=== PATIENT | female | born 1985 | race Two or more races ===

== ENCOUNTER 2018-12-19 16:28 | Emergency (ER) | payer OTHER ==
--- NOTE | 2018-12-19 17:38 | ER Document Report ---
ED Medical Screen (RME) - General Chief Complaint: Vaginal Bleeding Stated Complaint: VAGINAL BLEEDING WITH Time Seen by Provider: 12/19/18 17:36 Primary Care Provider: DON PETERSON MD [Primary Care Provider] - Follow up as needed Mode of Arrival: Ambulatory Information source: Patient Notes: 33-year-old female presented to ED for complaint of severe pelvic pain since this morning. She states she thinks she is having a miscarriage. She states her pain is a 5 out of 5 sharp cramping. She is 11 weeks . She states her last menstrual period was 10/01/2018. She went to the bathroom to urinate. She states while she was in the bathroom she passed the fetus and wrapped it up in toilet paper in a paper towel. She states she passed the fetus into her sanitary pad. She states the pain is much better now. She is not sure of her blood type. She thinks it is O+ but she is not sure. I have greeted and performed a rapid initial assessment of this patient. A comprehensive ED assessment and evaluation of the patient, analysis of test results and completion of medical decision making process will be conducted by an additional ED providers. - Related Data Allergies/Adverse Reactions: NSAIDS (Non-Steroidal Anti-Inflamma Allergy (Verified 12/19/18 16:36) Physical Exam - Vital signs Vitals: Temp Pulse Resp BP Pulse Ox 97.9 F 55 L 14 128/79 H 99 12/19/18 16:46 12/19/18 16:46 12/19/18 16:46 12/19/18 16:46 12/19/18 16:46 Course - Vital Signs Vital signs: Temp Pulse Resp BP Pulse Ox 97.9 F 55 L 14 128/79 H 99 12/19/18 16:46 12/19/18 16:46 12/19/18 16:46 12/19/18 16:46 12/19/18 16:46 Doctor's Discharge - Discharge Referrals: DON PETERSON MD [Primary Care Provider] - Follow up as needed
[2018-12-19 19:49] LABS: ABSOLUTE LYMPHOCYTES (AUTO) 0.7 10^3/uL (0.5-4.7); ABSOLUTE MONOCYTES (AUTO) 0.2 10^3/uL (0.1-1.4); ABSOLUTE NEUT (AUTO) 4.3 10^3/uL (1.7-8.2); BASOPHILS % (AUTO) 0.2 % (0-2); EOSINOPHILS % (AUTO) 0.1 % (0-6); HEMATOCRIT 32.1 % (36.0-47.0); HEMOGLOBIN 10.5 g/dL (12.0-15.5); LYMPHOCYTES % (AUTO) 13.8 % (13-45); MEAN CORPUSCULAR HEMOGLOBIN 25.8 pg (27.0-33.4); MEAN CORPUSCULAR HGB CONC 32.8 g/dL (32.0-36.0); MEAN CORPUSCULAR VOLUME 79 fl (80-97); MONOCYTES % (AUTO) 4.7 % (3-13); PLATELET COUNT 336 10^3/uL (150-450); RED BLOOD COUNT 4.08 10^6/uL (3.72-5.28); RED CELL DISTRIBUTION WIDTH 14.8 % (11.5-14.0); SEGMENTED NEUTROPHILS % (AUTO) 81.2 % (42-78); TOTAL CELLS COUNTED % (AUTO) 100 %; WHITE BLOOD COUNT 5.3 10^3/uL (4.0-10.5)
--- NOTE | 2018-12-19 20:01 | ER Document Report ---
ED General - General Chief Complaint: Vaginal Bleeding Stated Complaint: VAGINAL BLEEDING WITH Time Seen by Provider: 12/19/18 17:36 Primary Care Provider: NOLVIA RIVAS MD [ACTIVE STAFF] - Follow up as needed Mode of Arrival: Ambulatory Information source: Patient Notes: Patient is a 33-year-old female who presents to the emergency department with chief complaint of low abdominal cramping and vaginal bleeding. Patient reports that she is approximately 11 weeks . She is a . She states that she began having low abdominal cramping earlier today followed by bright red vaginal bleeding. She reports she is going through 1 pad every 2 hours. Will the patient was in the lobby patient reports that she passed what looked like a fetus. She states that the front nursing staff sent this down to the lab. Patient reports continued low abdominal cramping and vaginal bleeding. She has not not sure what her blood type is. - Related Data Allergies/Adverse Reactions: NSAIDS (Non-Steroidal Anti-Inflamma Allergy (Verified 12/19/18 16:36) Past Medical History - General Information source: Patient - Social History Smoking Status: Never Smoker Frequency of alcohol use: None Drug Abuse: None Family History: Reviewed & Not Pertinent - Medical History Medical History: Negative Surgical Hx: Negative - Immunizations Immunizations up to date: Yes Review of Systems - Review of Systems Constitutional: No symptoms reported EENT: No symptoms reported Cardiovascular: No symptoms reported Respiratory: No symptoms reported Gastrointestinal: Abdominal pain - low abd cramping Genitourinary: No symptoms reported Female Genitourinary: Vaginal bleeding Musculoskeletal: No symptoms reported Skin: No symptoms reported Hematologic/Lymphatic: No symptoms reported Neurological/Psychological: No symptoms reported Physical Exam - Vital signs Vitals: Temp Pulse Resp BP Pulse Ox 97.9 F 55 L 14 128/79 H 99 12/19/18 16:46 12/19/18 16:46 12/19/18 16:46 12/19/18 16:46 12/19/18 16:46 - Notes Notes: PHYSICAL EXAMINATION: GENERAL: Well-appearing, well-nourished and in no acute distress. HEAD: Atraumatic, normocephalic. EYES: Pupils equal round and reactive to light, extraocular movements intact, conjunctiva are normal. ENT: Nares patent, oropharynx clear without exudates. Moist mucous membranes. NECK: Normal range of motion, supple without lymphadenopathy LUNGS: Breath sounds clear to auscultation bilaterally and equal. No wheezes rales or rhonchi. HEART: Regular rate and rhythm without murmurs ABDOMEN: Soft, nontender, nondistended abdomen. No guarding, no rebound. No masses appreciated. Female : Small amounts of bright red blood noted in the vaginal vault. No active hemorrhage noted Musculoskeletal: Normal range of motion, no pitting or edema. No cyanosis. NEUROLOGICAL: Cranial nerves grossly intact. Normal speech, normal gait. Normal sensory, motor exams PSYCH: Tearful. SKIN: Warm, Dry, normal turgor, no rashes or lesions noted. Course - Re-evaluation Re-evalutation: Well appearing 33-year-old female presenting with probable miscarriage. Patient reports passing what looked like a small fetus while in the lobby. Patient reports this is her first . She states she was approximately 11 weeks. Her CBC is unremarkable with a hemoglobin of 10.5. HCG quantitative is 140,330. Patient reports she is changing her pad about once every 3 hours. I did visualize her bleeding and it appears to be mild at this time. She reports low abdominal cramping that is intermittent. Patient was sent for a transvaginal ultrasound which did not reveal a intrauterine nor did it show any retained products of conception. Most likely this is a completed a bortion. Patient was given a dose of ibuprofen here in the emergency department for her cramping and she reports significant relief. She will be instructed to take ibuprofen at home. Strict ED return precautions were discussed to include development of fever, worsening abdominal pain or bleeding through more than 1 pad per hour for 4 hours consecutively. Patient already has an appointment sche duled with her [facility] provider for Saturday. I encourage patient to keep this appointment to have them recheck her. - Vital Signs Vital signs: Temp Pulse Resp BP Pulse Ox 98.1 F 80 16 118/66 100 12/19/18 23:15 12/19/18 23:15 12/19/18 23:15 12/19/18 23:15 12/19/18 23:15 - Laboratory Result Diagrams: 12/19/18 19:26 Laboratory results interpreted by me: 12/19/18 12/19/18 19:26 19:26 Hgb 10.5 L Hct 32.1 L MCV 79 L MCH 25.8 L RDW 14.8 H Seg Neutrophils % 81.2 H Beta HCG, Quant 971824.00 H Discharge - Discharge Clinical Impression: Vaginal bleeding affecting early Condition: Stable Disposition: HOME, SELF-CARE Additional Instructions: Miscarriage You have had a miscarriage (medically called a "spontaneous "). The miscarriage occurred because the fetus did not develop normally. There is nothing you did to cause it, and nothing you could have done to prevent it. About one in four ends in miscarriage. You should rest in bed for two or three days. As there is some risk of infection of the uterus, you should not have intercourse for one week (or until okayed by your physician). You might not have a period for six to eight weeks. You should not become again for at least three months -- the uterus requires time to get back to normal. Call the doctor or return for re-examination if there is heavy or persiste nt vaginal bleeding, fever, foul discharge, continued cramping pains, or abdominal pain. Please take ibuprofen 600 mg every 6 hours for cramping and pain. Use the pain medication we sent to home with for severe pain only. Please return to the emergency department if you experience heavy vaginal bleeding and are saturating through 1 pad per hour for greater than 3 hours. Please follow-up with [facility], call them Saturday to schedule an appointment. Referrals: NOLVIA RIVAS MD [ACTIVE STAFF] - Follow up as needed
[2018-12-19] MEDS ORDERED: IBUPROFEN 600 MG TABLET PO ONE (20:05)
--- NOTE | 2018-12-19 22:32 | RADIOLOGY REPORT (SQ) ---
US PELVIS HISTORY: Vaginal bleeding. COMPARISON: None. TECHNIQUE: Grayscale, color Doppler, and spectral Doppler ultrasound images of the pelvis were obtained. FINDINGS: Uterus is anteverted and measures 10.5 x 5.7 x 6.2 cm. No intrauterine gestational sac, yolk sac, or pole is visualized. The endometrium is thickened and heterogeneous, measuring 3 cm. The cervix measures 2.2 cm in length. There are 2 left-sided posterior uterine fibroids measuring 2.4 x 1.7 x 2.2 cm and 2.3 x 1.3 x 2.1 cm. Both ovaries are normal, with the right measuring 3.1 x 2.5 x 2.2 cm and the left measuring 3.5 x 1.9 x 2.9 cm. Small anechoic cysts are present in both ovaries, measuring 1.1 cm on the right and 1.4 cm on the left. No pelvic free fluid is identified. IMPRESSION: 1. No intrauterine is identified. 2. Thickened heterogeneous endometrium but without evidence of retained products of conception. 3. Uterine fibroids. 4. Normal ovaries.
[2018-12-19] MEDS ORDERED: HYDROCODONE/ACETAMINOPHEN 5-325 MG (6 TAB/ER DISP) PO PRN (22:55)
[2018-12-19] MEDS ORDERED: ONDANSETRON ODT 4 MG TAB (6 TAB/ER DISP) PO PRN (22:55)
[2018-12-19 23:26] VITALS: BP 118/66
== END 2018-12-19 23:32 | disposition home or self-care (01) ==
LOC: ER 16:28
DX: O46.91 Antepartum hemorrhage, unspecified, first trimester (principal); Z3A.11 11 weeks gestation of pregnancy
CPT/HCPCS: 36415; 76817; 84702; 85025; 86900; 86901; 88300; 88305; 99284

== ENCOUNTER 2020-01-03 19:47 | Emergency (ER) | payer OTHER ==
--- NOTE | 2020-01-03 20:20 | ER Document Report ---
ED Medical Screen (RME) - General Chief Complaint: Chest Pain Stated Complaint: CHEST PAIN Time Seen by Provider: 01/03/20 20:13 Mode of Arrival: Ambulatory Information source: Patient Notes: 34-year-old female presented to ED for complaint of chest pain to the center of her chest that goes through to the back. She states this started during the night last night. She states it has come and gone during the day. It is worse when she gets up the breeze coughs or moves around. She states the pain at this moment is a 2/5 and the worst is been was a 5/5. She states the tightness is there all the time but she cannot describe the pain that is really bad that comes and goes when she breathes or coughs. States she last menstrual cycle was some spotting at the end of November. She states she was due to have her next Depo-Provera at end of November but is not taking it because she wanted to get . Last Depo- Provera was the end of August beginning of September. Lungs are clear to auscultation. I have greeted and performed a rapid initial assessment of this patient. A comprehensive ED assessment and evaluation of the patient, analysis of test results and completion of medical decision making process will be conducted by an additional ED providers. - Related Data Allergies/Adverse Reactions: NSAIDS (Non-Steroidal Anti-Inflamma Allergy (Verified 12/19/18 16:36) Past Medical History Renal/ Medical History: Denies: Hx Peritoneal Dialysis - Immunizations Immunizations up to date: Yes Physical Exam - Vital signs Vitals: Temp Pulse Resp BP Pulse Ox 99.1 F 112 H 16 124/85 100 01/03/20 20:10 01/03/20 20:10 01/03/20 20:10 01/03/20 20:10 01/03/20 20:10 Course - Vital Signs Vital signs: Temp Pulse Resp BP Pulse Ox 99.1 F 112 H 16 124/85 100 01/03/20 20:10 01/03/20 20:10 01/03/20 20:10 01/03/20 20:10 01/03/20 20:10
[2020-01-03 20:51] LABS: ABSOLUTE LYMPHOCYTES (AUTO) 0.4 10^3/uL (0.5-4.7); ABSOLUTE MONOCYTES (AUTO) 0.4 10^3/uL (0.1-1.4); ABSOLUTE NEUT (AUTO) 2.4 10^3/uL (1.7-8.2); BASOPHILS % (AUTO) 0.5 % (0-2); EOSINOPHILS % (AUTO) 0.1 % (0-6); HEMATOCRIT 35.7 % (36.0-47.0); HEMOGLOBIN 11.9 g/dL (12.0-15.5); LYMPHOCYTES % (AUTO) 13.4 % (13-45); MEAN CORPUSCULAR HEMOGLOBIN 30.4 pg (27.0-33.4); MEAN CORPUSCULAR HGB CONC 33.4 g/dL (32.0-36.0); MEAN CORPUSCULAR VOLUME 91 fl (80-97); MONOCYTES % (AUTO) 11.3 % (3-13); PLATELET COUNT 266 10^3/uL (150-450); RED BLOOD COUNT 3.92 10^6/uL (3.72-5.28); RED CELL DISTRIBUTION WIDTH 14.1 % (11.5-14.0); SEGMENTED NEUTROPHILS % (AUTO) 74.7 % (42-78); TOTAL CELLS COUNTED % (AUTO) 100 %; WHITE BLOOD COUNT 3.2 10^3/uL (4.0-10.5)
[2020-01-03 21:01] LABS: APPEARANCE,URINE SLIGHTLY-CLOUDY; BILIRUBIN,URINE NEGATIVE (NEGATIVE); COLOR,URINE YELLOW; GLUCOSE, URINE NEGATIVE (NEGATIVE); KETONES,URINE NEGATIVE (NEGATIVE); PROTEIN,URINE NEGATIVE (NEGATIVE); URINE SPECIFIC GRAVITY 1.014
--- NOTE | 2020-01-03 21:04 | RADIOLOGY REPORT (SQ) ---
EXAM DESCRIPTION: XR CHEST 2 VIEWS COMPLETED DATE/TME: 01/03/2020 20:21 CLINICAL HISTORY: 34 years, Female, Chest pain COMPARISON: None. NUMBER OF VIEWS: Two TECHNIQUE: Frontal and lateral radiographs were acquired LIMITATIONS: None. FINDINGS: Cardiac and mediastinal contours are normal in appearance. Lungs are clear. No pleural effusion or pneumothorax. IMPRESSION: No acute disease. copyright 2010 [employer]- All Rights Reserved
[2020-01-03 21:06] LABS: ALBUMIN 4.4 g/dL (3.5-5.0); ALKALINE PHOSPHATASE 99 U/L (38-126); ANION GAP 7 (5-19); ASPARTATE AMINO TRANSFERASE 89 U/L (14-36); BILIRUBIN,TOTAL 0.8 mg/dL (0.2-1.3); BLOOD UREA NITROGEN 9 mg/dL (7-20); CALCIUM 9.2 mg/dL (8.4-10.2); CARBON DIOXIDE 27 mmol/L (22-30); CHLORIDE 102 mmol/L (98-107); GLUCOSE 88 mg/dL (75-110); POTASSIUM 4.5 mmol/L (3.6-5.0); TOTAL PROTEIN 8.1 g/dL (6.3-8.2)
--- NOTE | 2020-01-03 21:15 | EKG REPORT ---
SEVERITY:- OTHERWISE NORMAL ECG - SINUS TACHYCARDIA : Confirmed by: Velasquez Cordova MD 03-Jan-2020 21:14:34
--- NOTE | 2020-01-03 21:44 | ER Document Report ---
Entered by DONTAE DUNCAN SCRIBE 01/03/202055 Acting as scribe for:MAGGIE CAMPBELL IV, MD ED General - General Chief Complaint: Chest Pain Stated Complaint: CHEST PAIN Time Seen by Provider: 01/03/20 20:13 Primary Care Provider: LORI MENDENHALL MD [Primary Care Provider] - 01/06/20 Mode of Arrival: Ambulatory Information source: Patient Notes: This 34 year old female patient with no significant past medical history present to the ED today with complaints of sternal chest pain with radiation to her back that began last night. Patient states that the pain comes and goes during the day and is worse with deep breaths, ambulation, and coughing. Patient notes that she was sent here from urgent care today for further evaluation. Patient also reports subjective fevers and a productive cough, stating that everyone in the house has been sick for the past couple of weeks. Patient states that she has been taking OTC medications and Theraflu for her symptoms without relief. Patient notes that she has a follow up appointment with her PCP scheduled for 01/06/2020. Patient states that she cannot take NSAIDS due to her gastric bypass surgery. Patient denies history of asthma, hypertension, or diabetes. - Related Data Allergies/Adverse Reactions: NSAIDS (Non-Steroidal Anti-Inflamma Allergy (Verified 12/19/18 16:36) Past Medical History - General Information source: Patient - Social History Smoking Status: Never Smoker Cigarette use (# per day): No Chew tobacco use (# tins/day): No Smoking Education Provided: No Frequency of alcohol use: None Drug Abuse: None Occupation: elevator constructor hydraulic Family History: Reviewed & Not Pertinent Patient has suicidal ideation: No Patient has homicidal ideation: No - Immunizations Immunizations up to date: Yes Review of Systems - Review of Systems Constitutional: See HPI, Fever EENT: No symptoms reported Cardiovascular: See HPI, Chest pain Respiratory: See HPI, Cough, Sputum Gastrointestinal: No symptoms reported Genitourinary: No symptoms reported Female Genitourinary: No symptoms reported Musculoskeletal: No symptoms reported Skin: No symptoms reported Hematologic/Lymphatic: No symptoms reported Neurological/Psychological: No symptoms reported -: Yes All other systems reviewed and negative Physical Exam - Vital signs Vitals: Temp Pulse Resp BP Pulse Ox 99.1 F 112 H 16 124/85 100 01/03/20 20:10 01/03/20 20:10 01/03/20 20:10 01/03/20 20:10 01/03/20 20:10 Interpretation: Tachycardic - General General appearance: Alert - HEENT Head: Normocephalic, Atraumatic Eyes: Normal Pupils: PERRL - Respiratory Respiratory status: No respiratory distress Chest status: Nontender Breath sounds: Normal Chest palpation: Normal - Cardiovascular Rhythm: Tachycardia Heart sounds: Normal auscultation Murmur: No Friction rub: No Gallop: None auscultated - Abdominal Inspection: Normal Distension: No distension Bowel sounds: Normal Tenderness: Nontender Organomegaly: No organomegaly - Back Back: Normal, Nontender - Extremities General upper extremity: Normal inspection General lower extremity: Normal inspection - Neurological Neuro grossly intact: Yes - Psychological Associated symptoms: Normal affect, Normal mood - Skin Skin Temperature: Warm Skin Moisture: Dry Skin Color: Normal Course - Vital Signs Vital signs: Temp Pulse Resp BP Pulse Ox 99.7 F 104 H 16 149/95 H 100 01/03/20 21:46 01/03/20 21:46 01/03/20 21:46 01/03/20 21:46 01/03/20 21:46 - Laboratory Result Diagrams: 01/03/20 20:30 01/03/20 20:30 Laboratory results interpreted by me: 01/03/20 01/03/20 01/03/20 20:30 20:30 20:30 WBC 3.2 L Hgb 11.9 L Hct 35.7 L RDW 14.1 H Absolute Lymphs (auto) 0.4 L Sodium 136.4 L AST 89 H ALT 49 H Urine Urobilinogen 4.0 H - EKG Interpretation by Me Additional EKG results interpreted by me: 01/03/20 21:28 EKG obtained on 01/03/2020 at 1953 hrs. was interpreted by this MD. Findings: Sinus tachycardia, rate 111, P waves preceding QRS complexes, normal axis QRS complexes appear narrow, there are no obvious patterns of ST segment elevation or depression to suggest acute myocardial ischemia or infarction. Impression sinus tachycardia with nonspecific ST segments. Discharge - Discharge Clinical Impression: Viral respiratory illness Condition: Good Disposition: HOME, SELF-CARE Instructions: Acetaminophen, Viral Syndrome ([facility]) Additional Instructions: Return to the Emergency Department without delay if any worse. HOME CARE INSTRUCTIONS & INFORMATION: Thank you for choosing us for your medi nelly needs. We hope you're satisfied with the care you received. After you leave, you must properly care for your problem and, at the same time, observe its progress. Any condition can change. Some illnesses can change rapidly over hours or days. If your condition worsens, return to the Emergency Department or see your physician promptly. ABOUT YOUR X-RAYS AND EKG'S: If you had an EKG or X-rays taken, they have been read by the Emergency Physician. The X-rays and EKG's will also be read by a Radiologist or Grape Grower within 24 hours. If discrepancies are noted, you will be notified by telephone. Please be certain the ED has a correct telephone number & address where you can be reached. Also, realize that some fractures or abnormalities do not show up on initial X-rays. If your symptoms continue, see your physician. ABOUT YOUR LABORATORY TEST: If you had laboratory tests, the results have been reviewed by the Emergency Physician. Some test results (for example cultures) may not be available for several days. You will be contacted if any test result shows you need additional treatment. Please be certain the ED has a correct telephone number and address where you can be reached. ABOUT YOUR MEDICATIONS: You will receive instructions on how to take your medicine on the prescription label you receive. Additional information may be provided by the Pharmacy. If you have questions afterwards, call the ED for clarification or further instructions. Some prescribed medications may cause drowsiness. Do not perform tasks such as driving a car or operating machinery without consulting your Pharmacist. If you feel you need a refill of pain medication, your condition will need re-evaluation. Please do not call for a refill of any medication. ABOUT YOUR SIGNATURE: Signature of this document acknowledges to followin. Understanding that you received emergency treatment and that you may be released before al medical problems are known or treated. Please be certain the ED has a correct phone number & address where you can be reached. 2. Acknowledgement that you will arrange for follow-up care as recommended. 3. Authorization for the Emergency Physician to provide information to your follow-up Physician in order to maximize your care. AT ANY TIME, IF YOUR SYMPTOMS CHANGE SIGNIFICANTLY OR WORSEN OR YOU DEVELOP NEW SYMPTOMS, RETURN TO THE EMERGENCY DEPARTMENT IMMEDIATELY FOR RE-EVALUATION. OUR GOAL IS TO PROVIDE EXCELLENT MEDICAL CARE! WE HOPE THAT WE HAVE MET YOUR EXPECTATIONS DURING YOUR EMERGENCY DEPARTMENT VISIT AND THAT YOU FEEL YOU HAVE RECEIVED EXCELLENT CARE! Forms: Return to Work Referrals: LORI MENDENHALL MD [Primary Care Provider] - 01/06/20 I personally performed the services described in the documentation, reviewed and edited the documentation which was dictated to the scribe in my presence, and it accurately records my words and actions.
[2020-01-03 21:46] VITALS: BP 149/95
== END 2020-01-03 21:46 | disposition home or self-care (01) ==
LOC: ER 19:47
DX: J06.9 Acute upper respiratory infection, unspecified (principal); R07.9 Chest pain, unspecified; M54.9 Dorsalgia, unspecified; R50.9 Fever, unspecified; R05 Cough; Z98.84 Bariatric surgery status; Z88.8 Allergy status to other drugs, medicaments and biological substances
CPT/HCPCS: 36415; 71046; 80053; 81001; 84702; 85025; 85379; 93005; 93010; 99285

== ENCOUNTER 2020-01-26 13:14 | Emergency (ER) | payer OTHER ==
--- NOTE | 2020-01-26 14:24 | ER Document Report ---
ED Medical Screen (RME) - General Chief Complaint: Flank Pain Stated Complaint: FLANK PAIN Time Seen by Provider: 01/26/20 14:20 Primary Care Provider: LORI MENDENHALL MD [Primary Care Provider] - Follow up as needed Mode of Arrival: Ambulatory Information source: Patient Notes: 34-year-old female presented to ED for complaint of left flank pain. She states the pain started on the seventh. It goes to the flank around to the front sometimes mostly to the lower back. She states before on the first she started her period before her cycle she had frequency with urination hot and cold chills states the only thing she is having now is the pain. 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 She states she does not smoke or use any drugs but she does drink on the weekends. She is alert oriented respirations regular and unlabored speaking in full sentences. She states she has no urinary symptoms at this time. I have greeted and performed a rapid initial assessment of this patient. A comprehensive ED assessment and evaluation of the patient, analysis of test results and completion of medical decision making process will be conducted by an additional ED providers. TRAVEL OUTSIDE OF THE [place] IN LAST 30 DAYS: No - Related Data Allergies/Adverse Reactions: NSAIDS (Non-Steroidal Anti-Inflamma Allergy (Verified 01/26/20 14:12) Past Medical History - Social History Chew tobacco use (# tins/day): No Frequency of alcohol use: Social Drug Abuse: None Renal/ Medical History: Denies: Hx Peritoneal Dialysis - Immunizations Immunizations up to date: Yes Physical Exam - Vital signs Vitals: Temp Pulse Resp BP Pulse Ox 99.1 F 114 H 18 141/95 H 99 01/26/20 13:20 01/26/20 13:20 01/26/20 13:20 01/26/20 13:20 01/26/20 13:20 Course - Vital Signs Vital signs: Temp Pulse Resp BP Pulse Ox 99.1 F 114 H 18 141/95 H 99 01/26/20 13:20 01/26/20 13:20 01/26/20 13:20 01/26/20 13:20 01/26/20 13:20 Doctor's Discharge - Discharge Referrals: LORI MENDENHALL MD [Primary Care Provider] - Follow up as needed
[2020-01-26 15:06] LABS: HEMATOCRIT 34.4 % (36.0-47.0); HEMOGLOBIN 11.6 g/dL (12.0-15.5); MEAN CORPUSCULAR HEMOGLOBIN 30.5 pg (27.0-33.4); MEAN CORPUSCULAR HGB CONC 33.6 g/dL (32.0-36.0); MEAN CORPUSCULAR VOLUME 91 fl (80-97); PLATELET COUNT 269 10^3/uL (150-450); RED BLOOD COUNT 3.79 10^6/uL (3.72-5.28); RED CELL DISTRIBUTION WIDTH 14.7 % (11.5-14.0); WHITE BLOOD COUNT 11.1 10^3/uL (4.0-10.5)
[2020-01-26 15:16] LABS: APPEARANCE,URINE SLIGHTLY-CLOUDY; BILIRUBIN,URINE NEGATIVE (NEGATIVE); COLOR,URINE YELLOW; GLUCOSE, URINE NEGATIVE (NEGATIVE); KETONES,URINE TRACE mg/dL (NEGATIVE); PROTEIN,URINE 100 mg/dL (NEGATIVE); URINE SPECIFIC GRAVITY 1.013
[2020-01-26 15:24] LABS: ALBUMIN 3.8 g/dL (3.5-5.0); ALKALINE PHOSPHATASE 114 U/L (38-126); ANION GAP 9 (5-19); ASPARTATE AMINO TRANSFERASE 58 U/L (14-36); BILIRUBIN,DIRECT 0.1 mg/dL (0.0-0.4); BLOOD UREA NITROGEN 7 mg/dL (7-20); CALCIUM 8.7 mg/dL (8.4-10.2); CARBON DIOXIDE 27 mmol/L (22-30); CHLORIDE 97 mmol/L (98-107); GLUCOSE 111 mg/dL (75-110); TOTAL PROTEIN 7.6 g/dL (6.3-8.2)
[2020-01-26 15:40] LABS: ABSOLUTE LYMPHOCYTES# (MANUAL) 0.6 10^3/uL (0.5-4.7); ABSOLUTE MONOCYTES # (MANUAL) 0.4 10^3/uL (0.1-1.4); AMORPHOUS SEDIMENT,UR TRACE; ANISOCYTOSIS SLIGHT; BAND NEUTROPHILS % (MANUAL) 1 % (3-5); BASOPHILS % (MANUAL) 0 % (0-2); EOSINOPHILS % (MANUAL) 0 % (0-6); LYMPHOCYTES % (MANUAL) 5 % (13-45); MONOCYTES % (MANUAL) 4 % (3-13); PLATELET COMMENT ADEQUATE; SEGMENTED NEUTROPHILS % (MAN) 90 % (42-78); TOTAL CELLS COUNTED 100
[2020-01-26] MEDS ORDERED: CEFTRIAXONE INJ 1000 MG VIAL IM ONE (16:17)
[2020-01-26] MEDS ORDERED: LIDOCAINE 1% INJ-PF (10 MG/ML) 30 ML SDV INJ ONE (16:17)
--- NOTE | 2020-01-26 16:20 | ER Document Report ---
ED General - General Chief Complaint: Flank Pain Stated Complaint: FLANK PAIN Time Seen by Provider: 01/26/20 14:20 Primary Care Provider: LORI MENDENHALL MD [Primary Care Provider] - Follow up in 3-5 days Mode of Arrival: Ambulatory TRAVEL OUTSIDE OF THE [place] IN LAST 30 DAYS: No - HPI Notes: Ms. Noel is a 34-year-old -[place] female with past medical history of hepatitis B, and gastric bypass, who presents with left flank pain and increased urinary frequency. Patient reports onset of increased urinary frequency 10 days ago, as well as an associated " normal sensation" urination. She denies any dysuria. She states that the next day she had lower abdominal cramping, which was followed by her normal menstrual cycle. She states that her increase urinary frequency self resolved, but returned this past weekend on Saturday with associated low back pain that worsens with movement. The pain is constant and remains in her low back and L flank and does not radiate to her groin. Patient also endorses feeling feverish with chills, as well as generalized headache. Denies any previous history of kidney stones, UTIs, or pyelonephritis. Of note, patient states that she does not have any concerns for STDs at this time. Denies any vaginal pain, vaginal discharge, headache, fever, neck pain, URI, sore throat, chest pain, palpitations, syncope, cough, shortness of breath, wheeze, dyspnea, abdominal pain, nausea/vomiting/diarrhea, loss of control of bowel or bladder, numbness/tingling, saddle anesthesia, muscle paralysis/weakness, or rash. - Related Data Allergies/Adverse Reactions: NSAIDS (Non-Steroidal Anti-Inflamma Allergy (Verified 01/26/20 14:12) Past Medical History - General Information source: Patient - Social History Smoking Status: Never Smoker Chew tobacco use (# tins/day): No Frequency of alcohol use: Social Drug Abuse: None Family History: Reviewed & Not Pertinent Patient has suicidal ideation: No Patient has homicidal ideation: No Renal/ Medical History: Denies: Hx Peritoneal Dialysis - Immunizations Immunizations up to date: Yes Review of Systems - Review of Systems -: Yes All other systems reviewed and negative Physical Exam - Vital signs Vitals: Temp Pulse Resp BP Pulse Ox 99.1 F 114 H 18 141/95 H 99 01/26/20 13:20 03/10/20 13:20 01/26/20 13:20 01/26/20 13:20 01/26/20 13:20 - Notes Notes: PHYSICAL EXAMINATION: GENERAL: Well-appearing, well-nourished and in no acute distress. HEAD: Atraumatic, normocephalic. EYES: Pupils equal round and reactive to light, extraocular movements intact, sclera anicteric, conjunctiva are normal. ENT: Nares patent and without discharge. oropharynx clear without exudates. No tonsilar hypertrophy or erythema. Moist mucous membranes. NECK: Normal range of motion, supple without lymphadenopathy LUNGS: Breath sounds clear to auscultation bilaterally and equal. No wheezes rales or rhonchi. HEART: Regular rate and rhythm without murmurs, rubs, gallops. ABDOMEN: Soft, nontender, nondistended abdomen. No guarding, no rebound. Normal bowel sounds present. + left CVA tenderness. Musculoskeletal: FROM to passive/active. Strength 5+/5. Extremities: No cyanosis, clubbing, or edema b/l. Peripheral pulses 2+. Capillary refill less than 3 seconds. NEUROLOGICAL: Normal speech, normal gait. PSYCH: Normal mood, normal affect. SKIN: Warm, Dry, normal turgor, no rashes or lesions noted. Course - Re-evaluation Re-evalutation: 01/26/20 16:17 Patient is an afebrile, well-hydrated, 34-year-old female who presents to the ED with dysuria, left flank pain, suspect pyelonephritis. Vitals are acceptable without any significant tachycardia, tachypnea, or hypoxia. PE is otherwise unremarkable. Patient's abdomen is soft and nontender. She does have left CVA tenderness noted. See urinalysis results. Urine culture is pending. HCG negative. Patient does have a mildly elevated white count with slight bandemia. Labs otherwise acceptable. She has no history or presentation consistent with ureteral stone at this time. Low suspicion/risk for acute appendicitis, bowel obstruction, acute cholecystitis, acute cholangitis, perforated diverticulitis, incarcerated hernia, pancreatitis, perforated ulcer, peritonitis, sepsis, pelvic inflammatory disease, ectopic , tubo-ovarian abscess, ovarian torsion, or other systemic emergent condition at this time. Patient is aware that her condition can change from initial presentation and she needs to monitor symptoms closely and seek medical attention if any acute changes. Patient given a dose of Rocephin here IM. I will send her home with a prescription for Keflex. Conservative measures otherwise for symptoms. Recheck with your PCM in 3-5 days. Consider consult with a Urologist. Return to the ED with any worsening/concerning symptoms otherwise as reviewed in discharge. Patient is in agreement. - Vital Signs Vital signs: Temp Pulse Resp BP Pulse Ox 99.1 F 114 H 18 141/95 H 99 01/26/20 13:20 01/26/20 13:20 01/26/20 13:20 01/26/20 13:20 01/26/20 13:20 - Laboratory Result Diagrams: 01/26/20 14:43 01/26/20 14:43 Laboratory results interpreted by me: 01/26/20 01/26/20 01/26/20 14:43 14:43 14:43 WBC 11.1 H Hgb 11.6 L Hct 34.4 L RDW 14.7 H Seg Neuts % (Manual) 90 H Band Neutrophils % 1 L Lymphocytes % (Manual) 5 L Abs Neuts (Manual) 10.1 H Sodium 132.9 L Chloride 97 L Glucose 111 H Total Bilirubin 2.0 H AST 58 H Urine Protein 100 H Urine Ketones TRACE H Urine Blood SMALL H Urine Urobilinogen 4.0 H Leukocyte Esterase Rfl SMALL H Discharge - Discharge Clinical Impression: Left flank pain, Dysuria, Acute UTI (urinary tract infection) Condition: Stable Disposition: HOME, SELF-CARE Instructions: Cephalexin ([facility]), Urinary Tract Infection ([facility]) Additional Instructions: Push fluids (i.e. water, cranberry juice) Proper hygenic technique Keep the skin clean Tylenol/ibuprofen as needed Take medications as directed F/u with your PCM in 3-5 days for a recheck Consider consult with a Urologist for ongoing/worsening symptoms. Return to the ED with any worsening symptoms and/or development of fever, headache, chest pain, palpitations, syncope, shortness of breath, trouble breathing, abdominal pain, n/v/d, blood in stool/urine, loss of control of bowel/bladder, urinary retention, or other worsening symptoms that are concerning to you. Prescriptions: Cephalexin Monohydrate [Keflex 500 mg Capsule] 500 mg PO TID #30 capsule Forms: Elevated Blood Pressure Referrals: LORI MENDENHALL MD [Primary Care Provider] - Follow up in 3-5 days
[2020-01-26 16:50] VITALS: BP 136/89
== END 2020-01-26 16:51 | disposition home or self-care (01) ==
LOC: ER 13:14
DX: N39.0 Urinary tract infection, site not specified (principal); M54.5 Low back pain; R68.83 Chills (without fever); Z98.84 Bariatric surgery status; Z88.8 Allergy status to other drugs, medicaments and biological substances
CPT/HCPCS: 99283; 96372; 36415; 87086; 84703; 85025; 80053; 81001; J3490; J0696

== ENCOUNTER → 2020-01-29 | Outpatient (CLI) | payer OTHER ==
--- NOTE | 2020-01-29 09:20 | WOMENS IMAGING REPORT ---
EXAM DESCRIPTION: U/S ABDOMEN LIMITED COMPLETED DATE/TIME: 01/29/2020 8:07 am REASON FOR STUDY: B18.1 CHRONIC VIRAL HEPATITIS B WITHOUT DELTA-AGENT B18.1 CHRONIC VIRAL HEPATITIS B WITHOUT DELTA-AGENT COMPARISON: 07/03/2013 TECHNIQUE: Dynamic and static grayscale images acquired of the abdomen and recorded on PACS. Additio nal selected color Doppler and spectral images recorded. LIMITATIONS: None. FINDINGS: PANCREAS: No masses. Visualized pancreatic duct normal caliber. LIVER: No focal lesions. Increased echogenicity with decreased visualization of the portal triads. No ductal dilation. LIVER VASCULATURE: Normal directional flow of the main portal vein and hepatic veins. GALLBLADDER: No stones. Normal wall thickness. No pericholecystic fluid. ULTRASOUND-DETECTED BRYANT'S SIGN: Negative. INTRAHEPATIC DUCTS AND COMMON DUCT: CBD and intrahepatic ducts normal caliber. No filling defects. INFERIOR VENA CAVA: Normal flow. AORTA: No aneurysm. RIGHT KIDNEY: Normal size measuring 11.3 cm. Normal echogenicity. No solid or suspicious masses. No hydronephrosis. No calcifications. PERITONEAL AND RIGHT PLEURAL SPACE: No ascites or effusions. OTHER: No other significant findings. IMPRESSION: Hepatic steatosis. Otherwise, unremarkable right upper quadrant ultrasound. TECHNICAL DOCUMENTATION: JOB ID: [id number] 2010 [employer]- All Rights Reserved Reading location - IP/workstation name: [email or web address]
== END ==
LOC: WI 07:27
PROVIDERS: ATTEND Internal Medicine
DX: B18.1 Chronic viral hepatitis B without delta-agent (principal); K76.0 Fatty (change of) liver, not elsewhere classified
CPT/HCPCS: 76705